=== PATIENT | male | born 1970 | race Caucasian/White ===

== ENCOUNTER 2020-07-22 08:37 | Emergency (ER) | payer OTHER ==
[~2020-07-22] VITALS: Ht 177 cm; Wt 122.4 kg
[~2020-07-22 08:37] MED LIST: DOXY-227 PO
[2020-07-22 09:01] LABS: ABG OXYGEN SATURATION 96 % (94-100); ABG PCO2 37 MMHG (35-45); ABG PH 7.47 (7.37-7.43); ABG PO2 83 MMHG (79-93)
[2020-07-22 09:02] LABS: ALLENS TEST YES-POS
[2020-07-22 09:02] LABS: BASOPHILS % (AUTO) 0 % (0-10); EOSINOPHILS # (AUTO) 0.2 10^3/uL (0.0-0.3); EOSINOPHILS % (AUTO) 4 % (0-10); HEMATOCRIT 42 % (40-54); HEMOGLOBIN 13.4 G/DL (13.3-17.7); LYMPHOCYTES % (AUTO) 16 % (12-44); MEAN CORPUSCULAR HEMOGLOBIN 26 PG (25-34); MEAN CORPUSCULAR HGB CONC 32 G/DL (32-36); MEAN CORPUSCULAR VOLUME 81 FL (80-99); MEAN PLATELET VOLUME 9.3 FL (7.4-10.4); MONOCYTES # (AUTO) 0.9 X 10^3 (0.0-1.0); MONOCYTES % (AUTO) 13 % (0-12); NEUTROPHILS # (AUTO) 4.5 X 10^3 (1.8-7.8); NEUTROPHILS % (AUTO) 68 % (42-75); PLATELET COUNT 384 10^3/uL (130-400); WHITE BLOOD COUNT 6.7 10^3/uL (4.3-11.0)
[2020-07-22 09:03] LABS: INSPIRED O2 ROOM AIR; PATIENT TEMP 96.4; VENTILATOR NO
[2020-07-22] MEDS ORDERED: NS IV 500 ML 500 ML IV ONE (09:04)
[2020-07-22 09:06] LABS: ALBUMIN 4.3 GM/DL (3.2-4.5); CHLORIDE 98 MMOL/L (98-107); POTASSIUM 4.3 MMOL/L (3.6-5.0); PROTHROMBIN TIME PATIENT 14.1 SEC (12.2-14.7); SODIUM 134 MMOL/L (135-145)
[2020-07-22 09:07] LABS: CALCIUM 9.7 MG/DL (8.5-10.1)
[2020-07-22 09:08] LABS: GLUCOSE 123 MG/DL (70-105); TOTAL PROTEIN 8.2 GM/DL (6.4-8.2)
[2020-07-22 09:09] LABS: CARBON DIOXIDE 24 MMOL/L (21-32)
[2020-07-22 09:10] LABS: BILIRUBIN,TOTAL 0.9 MG/DL (0.1-1.0)
[2020-07-22 09:12] LABS: ALKALINE PHOSPHATASE 86 U/L (40-136); CREATININE SERUM 1.06 MG/DL (0.60-1.30); GFR ESTIMATED > 60
[2020-07-22 09:13] LABS: BUN/CREATININE RATIO 10
[2020-07-22 09:15] LABS: ALANINE AMINOTRANSFERASE 25 U/L (0-55)
--- NOTE | 2020-07-22 09:20 | ED Respiratory ---
General Chief Complaint: Respiratory Problems Stated Complaint: SOA / COUGH Nursing Triage Note: WAS SEEN YESTERDAY ET DX WITH PNEUMONIA. COVID NEG. PT STATES HE IS STILL HAVING SOA AND DID NOT SLEEP LAST NIGHT. Source: patient Exam Limitations: no limitations History of Present Illness Date Seen by Provider: Jul 22, 2020 Time Seen by Provider: 08:37 Initial Comments Patient presents ER by private conveyance with chief complaint of shortness of breath, waking up several times in the night gasping with a. He was diagnosed with a pneumonia and put on doxycycline and on second day of this antibiotic. Couple weeks ago he had some sinusitis and was treated with azithromycin. He has a stated allergy to penicillin since he was a child but does not know what the effect is. He has a history of atrial fibrillation on Eliquis but no coronary disease known. He is visiting from [place] and has a primary care provider in [place]. He is not having any fevers or chills. He had a negative COVID-19 swab yesterday. No nausea vomiting or diarrhea. No history of COPD or asthma. Does n ot smoke nor did he ever. No history of obstructive sleep apnea. The patient states a couple years ago he was tested for sleep apnea and told it was okay. Allergies and Home Medications Allergies Coded Allergies: Penicillins (Verified Allergy, Unknown, 07/21/20) Home Medications Doxycycline Hyclate 100 Mg Tablet., 100 MG PO BID Prescribed by: LINETTE KEY on 07/21/20 0807 Patient Home Medication List Home Medication List Reviewed: Yes Review of Systems Review of Systems Constitutional: No chills, No diaphoresis EENTM: throat pain; No ear discharge, No ear pain Respiratory: cough; No phlegm; short of breath; No wheezing Cardiovascular: No chest pain, No Hx of Intervention, No palpitations, No vascular heart diseas Gastrointestinal: No abdominal pain, No nausea, No vomiting Genitourinary: No discharge, No dysuria Musculoskeletal: No back pain, No joint pain Skin: No pruritus, No rash All Other Systems Reviewed Negative Unless Noted: Yes Past Cldpuve-Feuelo-Mxntpp Hx Patient Social History Alcohol Use: Occasionally Uses Alcohol Beverage of Choice: Beer, Whiskey Recreational Drug Use: No Smoking Status: Never a Smoker Recent Foreign Travel: No Contact w/Someone Who Travel: No Recent Infectious Disease Expo: No Recent Hopitalizations: No Seasonal Allergies Seasonal Allergies: No Past Medical History Surgeries: Yes (APPY AGE 9; TOE SURGERY DUE TO TRAUMA; EXPLORATORY LAPAROSCOPY- NO DX) Abdominal, Appendectomy, Orthopedic Respiratory: No Cardiac: Yes Atrial Fibrillation, Hypertension Neurological: No Genitourinary: No Gastrointestinal: No Gastroesophageal Reflux Musculoskeletal: Yes (TOE INJURY WITH REPAIR) Endocrine: No HEENT: No Cancer: No Psychosocial: No Integumentary: No Blood Disorders: No Physical Exam Vital Signs - First Documented 07/22/20 08:37 Temp 35.8 Pulse 80 B/P (MAP) 168/124 (139) Pulse Ox 97 O2 Delivery Room Air Capillary Refill : Less Than 3 Seconds Height: '" Weight: lbs. oz. kg; 39.00 BMI Method: General Appearance: WD/WN, no apparent distress Eyes: Bilateral Eye Normal Inspection, Bilateral Eye PERRL, Bilateral Eye EOMI HEENT: PERRL/EOMI, TMs normal, pharyngeal erythema; No tonsillar exudate; other (mild uvula edema and injection) Neck: non-tender, full range of motion, supple, normal inspection Respiratory: chest non-tender, lungs clear, normal breath sounds, no respiratory distress, no accessory muscle use Cardiovascular: normal peripheral pulses, regular rate, rhythm Gastrointestinal: normal bowel sounds, non tender, soft Extremities: non-tender, normal inspection, no pedal edema, normal capillary re fill Neurologic/Psychiatric: alert, normal mood/affect, oriented x 3 Skin: normal color, warm/dry Progress/Results/Core Measures Suspected Sepsis Recent Fever Within 48 Hours: No Infection Criteria Present: Documented Infection New/Unexplained Altered Menta: No Sepsis Screen: No Definite Risk SIRS Temperature: Pulse: 80 Respiratory Rate: Laboratory Tests 07/22/20 08:50: White Blood Count 6.7 Blood Pressure 168 /124 Mean: 139 Laboratory Tests 07/22/20 08:50: Creatinine 1.06, INR Comment 1.0, Platelet Count 384, Total Bilirubin 0.9 Results/Orders Lab Results Laboratory Tests Test 07/22/20 08:50 07/22/20 08:55 Range/Units White Blood Count 6.7 4.3-11.0 10^3/uL Red Blood Count 5.17 4.35-5.85 10^6/uL Hemoglobin 13.4 13.3-17.7 G/DL Hematocrit 42 40-54 % Mean Corpuscular Volume 81 80-99 FL Mean Corpuscular Hemoglobin 26 25-34 PG Mean Corpuscular Hemoglobin Concent 32 32-36 G/DL Red Cell Distribution Width 15.5 H 10.0-14.5 % Platelet Count 384 130-400 10^3/uL Mean Platelet Volume 9.3 7.4-10.4 FL Neutrophils (%) (Auto) 68 42-75 % Lymphocytes (%) (Auto) 16 12-44 % Monocytes (%) (Auto) 13 H 0-12 % Eosinophils (%) (Auto) 4 0-10 % Basophils (%) (Auto) 0 0-10 % Neutrophils # (Auto) 4.5 1.8-7.8 X 10^3 Lymphocytes # (Auto) 1.0 1.0-4.0 X 10^3 Monocytes # (Auto) 0.9 0.0-1.0 X 10^3 Eosinophils # (Auto) 0.2 0.0-0.3 10^3/uL Basophils # (Auto) 0.0 0.0-0.1 10^3/uL Prothrombin Time 14.1 12.2-14.7 SEC INR Comment 1.0 0.8-1.4 Sodium Level 134 L 135-145 MMOL/L Potassium Level 4.3 3.6-5.0 MMOL/L Chloride Level 98 98-107 MMOL/L Carbon Dioxide Level 24 21-32 MMOL/L Anion Gap 12 5-14 MMOL/L Blood Urea Nitrogen 11 7-18 MG/DL Creatinine 1.06 0.60-1.30 MG/DL Estimat Glomerular Filtration Rate > 60 BUN/Creatinine Ratio 10 Glucose Level 123 H 70-105 MG/DL Calcium Level 9.7 8.5-10.1 MG/DL Corrected Calcium 9.5 8.5-10.1 MG/DL Total Bilirubin 0.9 0.1-1.0 MG/DL Aspartate Amino Transf (AST/SGOT) 18 5-34 U/L Alanine Aminotransferase (ALT/SGPT) 25 0-55 U/L Alkaline Phosphatase 86 40-136 U/L Troponin I < 0.028 <0.028 NG/ML B-Type Natriuretic Peptide 19.4 <100.0 PG/ML Total Protein 8.2 6.4-8.2 GM/DL Albumin 4.3 3.2-4.5 GM/DL Blood Gas Puncture Site LT RAD Blood Gas Patient Temperature 96.4 Arterial Blood pH 7.47 H 7.37-7.43 Arterial Blood Partial Pressure CO2 37 35-45 MMHG Arterial Blood Partial Pressure O2 83 79-93 MMHG Arterial Blood HCO3 27 23-27 MMOL/L Arterial Blood Total CO2 28.0 21.0-31.0 MMOL/L Arterial Blood Oxygen Saturation 96 94-100 % Arterial Blood Base Excess 3.0 H -2.5-2.5 MMOL/L Kvng Test YES-POS Blood Gas Ventilator Setting NO Blood Gas Inspired Oxygen ROOM AIR My Orders Orders - ADWOA ARRINGTON Cbc With Automated Diff (07/22/20 08:52) Comprehensive Metabolic Panel (07/22/20 08:52) Chest Pa/Lat (2 View) (07/22/20 08:52) Continuous Ekg Monitoring (07/22/20 08:52) Troponin I (07/22/20 08:52) BNP (07/22/20 08:52) Protime With Inr (07/22/20 08:52) Arterial Blood Gas (07/22/20 08:56) Ed Iv/Invasive Line Start (07/22/20 09:04) Ns Iv 500 Ml (Sodium Chloride 0.9%) (07/22/20 09:04) Medications Given in ED Current Medications Medications Dose Ordered Sig/[place] Route Start Time Stop Time Status Last Admin Dose Admin Sodium Chloride 500 ml @ 0 mls/hr Q0M ONCE IV 07/22/20 09:04 07/22/20 09:05 DC 07/22/20 09:09 500 MLS/HR Vital Signs/I&O 07/22/20 08:37 Temp 35.8 Pulse 80 B/P (MAP) 168/124 (139) Pulse Ox 97 O2 Delivery Room Air Capillary Refill : Less Than 3 Seconds Blood Pressure Mean: 139 Progress Note : Time: 09:18 Progress Note Suspect he has upper respiratory tract infection that is viral causing postnasal drip and swollen soft tissues which may be causing an obstructive process when he sleeps. We'll check some basic labs and a repeat 2 view chest x-ray. If his pneumonia does not merit inpatient care then we will recommend some alpha-2 use, sleeping upright, vapor rubs etc. ECG Initial ECG Impression Date: Jul 22, 2020 Initial ECG Impression Time: 08:44 Initial ECG Rate: 84 Initial ECG Rhythm: Normal Sinus Initial ECG Intervals: Normal Initial ECG Impression: Normal Comment Normal sinus rhythm without clinically relevant ST elevation or depression. Diagnostic Imaging Diagonstic Imaging: Xray Plain Films/CT/US/NM/MRI: chest Comments NAME: ALVA RODRIGUEZ [facility] REC#: [id number] PT STATUS: REG ER : 1970 PHYSICIAN: ADWOA ARRINGTON MD ADMIT DATE: 07/22/20/ER Signed Date of Exam:07/22/20 CHEST PA/LAT (2 VIEW) EXAMINATION: Chest 2 view HISTORY: Shortness of breath. Atrial fibrillation. COMPARISON: Chest radiograph on 07/21/2020. FINDINGS: The lung volumes are normal. No focal consolidation is seen. No large pleural effusion or pneumothorax is seen. The cardiomediastinal silhouette is prominent. No acute osseous abnormality is seen. IMPRESSION: 1. Stable cardiomegaly. No overt pulmonary edema. No change since the prior exam. Dictated by: Dictated on workstation # [id number] Dict: 07/22/20 1024 Trans: 07/22/[address] [facility] [id number] Interpreted by: LUCIO PALM DO Electronically signed by: LUCIO PALM DO 07/22/20 1031 Reviewed: Reviewed by Me Departure Impression Primary Impression: Pneumonia Qualified Codes: J18.9 - Pneumonia, unspecified organism Additional Impressions: URI, acute Obstructive sleep apnea syndrome in adult Disposition: 01 HOME, SELF-CARE Condition: Stable Departure-Patient Inst. Decision time for Depature: 11:16 Referrals: NO,LOCAL PHYSICIAN (PCP/Family) Primary Care Physician Patient Instructions: Obstructive Sleep Apnea, Adult (DC) Add. Discharge Instructions: I suspect your upper respiratory tract infection is causing swelling of the soft tissue in the back your throat which is resulting in you having some temporary obstructive sleep apnea. This is what is causing you to choke and wake up in your sleep. You can pretreat with antihistamine such as Claritin, Zyrtec or Sherie 10 mg daily. You can also use oxymetazoline 1-2 puffs each nostril every 4 hours as needed for congestion. If this alone is not sufficient then you may start steroids, prednisone 2 tablets daily in the morning for 5 days. Finally until your symptoms improve you should consider sleeping in an upright position such as in a recliner. If you have worsening symptoms you can follow-up with your primary care doctor or return to the ER as appropriate. All discharge instructions reviewed with patient and/or family. Voiced understanding. Scripts Oxymetazoline HCl (Oxymetazoline HCl) 30 Ml [place] 2 PUFF NS Q4H PRN for CONGESTION for 14 Days, #1 EA 0 Refills Prov: ADWOA ARRINGTON 07/22/20 Prednisone (Prednisone) 20 Mg Tab 40 MG PO DAILY for 5 Days, #10 TAB 0 Refills Prov: ADWOA ARRINGTON 07/22/20 ADWOA ARRINGTON Jul 22, 2020 09:20
--- NOTE | 2020-07-22 10:27 | Diagnostic Imaging Report ---
EXAMINATION: Chest 2 view HISTORY: Shortness of breath. Atrial fibrillation. COMPARISON: Chest radiograph on 07/21/2020. FINDINGS: The lung volumes are normal. No focal consolidation is seen. No large pleural effusion or pneumothorax is seen. The cardiomediastinal silhouette is prominent. No acute osseous abnormality is seen. IMPRESSION: 1. Stable cardiomegaly. No overt pulmonary edema. No change since the prior exam. Dictated by: Dictated on workstation # [id number]
--- NOTE | 2020-07-22 10:44 | NUR ---
RESTING IN BED ET STATES EVERYTIME HE DOZES OFF HE LOOSES HIS BREATH AND FEELS SOA.
--- NOTE | 2020-07-22 11:22 | NUR ---
DR IN WITH PT AT THIS TIME.
[2020-07-22] MEDS ORDERED: PRD20T PO (11:28)
[2020-07-22] MEDS ORDERED: OXYM-12 NS (11:28)
[2020-07-22 11:34] VITALS: BP 145/107
== END 2020-07-22 11:34 | disposition home or self-care (01) ==
LOC: EDUNIT# 08:37 → ER 08:38
DX: J18.9 Pneumonia, unspecified organism (principal); J06.9 Acute upper respiratory infection, unspecified; G47.33 Obstructive sleep apnea (adult) (pediatric); I48.91 Unspecified atrial fibrillation; Z79.01 Long term (current) use of anticoagulants; Z88.0 Allergy status to penicillin
CPT/HCPCS: 36415; 71046; 80053; 82805; 83880; 84484; 85025; 85610